=== PATIENT | male | born 1965 | race Caucasian/White ===

== ENCOUNTER 2016-12-03 22:00 | Emergency (ER) | payer BC, OTHER ==
[~2016-12-03] VITALS: Ht 175.3 cm; Wt 94.5 kg
[2016-12-03 22:06] VITALS: Ht 175.3 cm; Wt 94.5 kg
[2016-12-04] MEDS ORDERED: ONDANSETRON 4 MG INJ IV STA (00:15)
[2016-12-04] MEDS ORDERED: morphine 4 MG/ML VIAL IV STA (00:15)
[2016-12-04] MEDS ORDERED: FAMOTIDINE 20 MG INJ IV STA (00:15)
[2016-12-04] MEDS ORDERED: SOD CHLORIDE 0.9% 1,000 ML IV STA (00:15)
[2016-12-04] MEDS ORDERED: LIDOCAINE/MYLANTA 40 ML BTL PO ONE (00:30)
--- NOTE | 2016-12-04 00:40 | RADRPT ---
PROCEDURE: XR Chest. CLINICAL INDICATION: Abdominal pain TECHNIQUE: Single frontal view of the chest was obtained COMPARISON: None FINDINGS: The heart and mediastinum are within normal limits. The lungs are clear. There is no pleural effusion or pneumothorax. IMPRESSION: No acute disease. RPTAT: HJES .Nick Gutierrez MD, Date Time Electronically viewed and signed by .Nick Gutierrez MD, on 12/04/2016 00:40 .S/
[2016-12-04 00:49] LABS: ADD SCAN DIFF NO
[2016-12-04 00:50] LABS: ABNORMAL IP MESSAGE 1; BASOPHILS % 0.3 % (0.0-2.0); EOSINOPHILS # 0.3 10^3/ul (0.0-0.5); EOSINOPHILS % 2.1 % (0.0-7.0); HEMATOCRIT 40.1 % (42.0-52.0); HEMOGLOBIN 13.9 g/dl (14.0-18.0); LYMPHOCYTES # 5.2 10^3/ul (0.8-2.9); LYMPHOCYTES % 43.1 % (15.0-51.0); MEAN CORPUSCULAR HEMOGLOBIN 29.3 pg (29.0-33.0); MEAN CORPUSCULAR HGB CONC 34.7 g/dl (32.0-37.0); MEAN CORPUSCULAR VOLUME 84.6 fl (82.0-101.0); MEAN PLATELET VOLUME 9.4 fl (7.4-10.4); MONOCYTE # 0.8 10^3/ul (0.3-0.9); MONOCYTES % 6.4 % (0.0-11.0); NEUTROPHIL # 5.7 10^3/ul (1.6-7.5); NEUTROPHILS % 47.8 % (39.0-77.0); PLATELET COUNT 299 10^3/UL (140-415); RED BLOOD COUNT 4.74 10^6/ul (4.70-6.10); RED CELL DISTRIBUTION WIDTH 12.7 % (11.5-14.5)
[2016-12-04 01:08] LABS: ALANINE AMINOTRANSFERASE 30 IU/L (13-69); ALBUMIN 4.7 g/dl (3.3-4.9); ALBUMIN/GLOBULIN RATIO 1.88; ALKALINE PHOSPHATASE 60 IU/L (42-121); ANION GAP 15 (8-16); ASPARTATE AMINO TRANSFERASE 20 IU/L (15-46); BILIRUBIN,INDIRECT 0.2 mg/dl (0-1.1); BILIRUBIN,TOTAL 0.2 mg/dl (0.2-1.3); BLOOD UREA NITROGEN 27 mg/dl (7-20); CALCIUM 9.9 mg/dl (8.4-10.2); CARBON DIOXIDE 24 mmol/L (21-31); CHLORIDE 98 mmol/L (97-110); GLUCOSE 219 mg/dl (70-220); POTASSIUM 3.7 mmol/L (3.5-5.1); SODIUM 133 mmol/L (135-144); TOTAL PROTEIN 7.2 g/dl (6.1-8.1)
[2016-12-04 01:24] LABS: TROPONIN-I < 0.012 ng/ml (0.00-0.12)
[2016-12-04 01:34] LABS: ADD UMIC YES; UR AMORPHOUS CRYSTAL MANY /HPF (NONE SEEN); UR ASCORBIC ACID NEGATIVE (NEGATIVE); UR BILIRUBIN (Dip) NEGATIVE (NEGATIVE); UR BLOOD (Dip) NEGATIVE (NEGATIVE); UR CLARITY CLOUDY (CLEAR); UR COLOR YELLOW (YELLOW); UR GLUCOSE (Dip) 2+ mg/dL (NEGATIVE); UR KETONES (Dip) TRACE mg/dL (NEGATIVE); UR LEUKOCYTE ESTERASE (Dip) NEGATIVE Leu/ul (NEGATIVE); UR NITRITE (Dip) NEGATIVE (NEGATIVE); UR RBC 0 /HPF (0-5); UR TOTAL PROTEIN (Dip) 1+ mg/dl (NEGATIVE); UR UROBILINOGEN (Dip) NEGATIVE (NEGATIVE)
[2016-12-04] MEDS ORDERED: SUCR1TAB56 PO (01:49)
[2016-12-04] MEDS ORDERED: RANI150T9 PO (01:49)
--- NOTE | 2016-12-04 01:49 | ERD ---
ER Documentation Chief Complaint Date/Time DATE: 12/04/16 TIME: 01:48 Chief Complaint epigastric pain x 3 days. "burning pain" hx of GERD HPI 51-year-old male with epigastric burning pain 3 days. Patient has history of GERD. No fevers no chills. Mild nausea but no vomiting. No other current complaints. Pain is burning sensation. Similar to some GERD symptoms in the past. ROS All systems reviewed and are negative except as per history of present illness. PMhx/Soc Medical and Surgical Hx: pt denies Surgical Hx Hx Cardiac Disorders: Yes (htn) Hx Miscellaneous Medical Probl: Yes (diabetes) Hx Alcohol Use: Yes (some) Hx Substance Use: No Hx Tobacco Use: Yes Smoking Status: Current every day smoker Physical Exam Vitals Vital Signs Date Time Temp Pulse Resp B/P Pulse Ox O2 Delivery O2 Flow Rate FiO2 12/03/16 22:06 98.5 87 18 136/82 99 Physical Exam Const: [] Head: Atraumatic Eyes: Normal Conjunctiva ENT: Normal External Ears, Nose and Mouth. Neck: Full range of motion..~ No meningismus. Resp: Clear to auscultation bilaterally Cardio: Regular rate and rhythm, no murmurs Abd: Soft, non tender, non distended. Normal bowel sounds Skin: No petechiae or rashes Back: No midline or flank tenderness Ext: No cyanosis, or edema Neur: Awake and alert Psych: Normal Mood and Affect Result Diagram: 12/04/16 0030 12/04/16 0030 Results 24 hrs Laboratory Tests Test 12/04/16 00:30 12/04/16 01:00 White Blood Count 12.010^3/ul Red Blood Count 4.7410^6/ul Hemoglobin 13.9g/dl Hematocrit 40.1% Mean Corpuscular Volume 84.6fl Mean Corpuscular Hemoglobin 29.3pg Mean Corpuscular Hemoglobin Concent 34.7g/dl Red Cell Distribution Width 12.7% Platelet Count 79265^3/UL Mean Platelet Volume 9.4fl Neutrophils % 47.8% Lymphocytes % 43.1% Monocytes % 6.4% Eosinophils % 2.1% Basophils % 0.3% Nucleated Red Blood Cells % 0.0/100WBC Neutrophils # 5.710^3/ul Lymphocytes # 5.210^3/ul Monocytes # 0.810^3/ul Eosinophils # 0.310^3/ul Basophils # 0.010^3/ul Nucleated Red Blood Cells # 0.010^3/ul Sodium Level 133mmol/L Potassium Level 3.7mmol/L Chloride Level 98mmol/L Carbon Dioxide Level 24mmol/L Anion Gap 15 Blood Urea Nitrogen 27mg/dl Creatinine 1.30mg/dl Glucose Level 219mg/dl Calcium Level 9.9mg/dl Total Bilirubin 0.2mg/dl Direct Bilirubin 0.00mg/dl Indirect Bilirubin 0.2mg/dl Aspartate Amino Transf (AST/SGOT) 20IU/L Alanine Aminotransferase (ALT/SGPT) 30IU/L Alkaline Phosphatase 60IU/L Troponin I < 0.012ng/ml Total Protein 7.2g/dl Albumin 4.7g/dl Globulin 2.50g/dl Albumin/Globulin Ratio 1.88 Lipase 280U/L Urine Color YELLOW Urine Clarity CLOUDY Urine pH 8.0 Urine Specific Clancy 1.020 Urine Ketones TRACEmg/dL Urine Nitrite NEGATIVEmg/dL Urine Bilirubin NEGATIVEmg/dL Urine Urobilinogen NEGATIVEmg/dL Urine Leukocyte Esterase NEGATIVELeu/ul Urine Microscopic RBC 0/HPF Urine Microscopic WBC 0/HPF Urine Amorphous Crystals MANY/HPF Urine Hemoglobin NEGATIVEmg/dL Urine Glucose 2+mg/dL Urine Total Protein 1+mg/dl Current Medications Medications (Trade) Dose Ordered Sig/Ericka Route PRN Reason Start Time Stop Time Status Last Admin Dose Admin Sodium Chloride (NS) 1,000 ml @ 1,000 mls/hr Q1H STAT IV 12/04/16 00:15 12/04/16 01:14 DC 12/04/16 00:27 Morphine Sulfate (morphine) 4 mg ONCE STAT IV 12/04/16 00:15 12/04/16 00:17 DC 12/04/16 00:27 Ondansetron HCl (Zofran Inj) 4 mg ONCE STAT IV 12/04/16 00:15 12/04/16 00:17 DC 12/04/16 00:27 Famotidine (Pepcid Iv) 20 mg ONCE STAT IV 12/04/16 00:15 12/04/16 00:17 DC 12/04/16 00:27 Miscellaneous Medication (Gi Cocktail (2)) 40 ml ONCE ONCE PO 12/04/16 00:30 12/04/16 00:31 DC 12/04/16 00:26 Procedures/MDM EKG: Rate/Rhythm: Normal Sinus Rhythm QRS, ST, T-waves: No changes consistent w/ acute ischemia Impression: No evidence of ischemia or arrhythmia Chest X-ray 1V Interpreted by me: Soft Tissue: No acute abnormalities Bones: No acute abnormalities Mediastinum/Cardiac Silhouette/Lungs: No acute abnormalities Medical decision-making: This very pleasant gentleman comes in with epigastric burning sensation consistent with a history of GERD. No evidence of cardiac ischemia. Well-appearing. Pain is resolved. Patient be discharged home with Zantac and Carafate. Patient has no risk factors cardiac disease., However the patient has been advised to return immediately to the ER for any chest pain shortness breath. Also advised to return in 8 hours for serial abdominal exams which he agrees. Departure Diagnosis: Primary Impression: Epigastric pain Condition: Stable ROSANA HENRY Dec 04, 2016 01:49
[2016-12-04 02:25] VITALS: BP 133/95; PULSE 77; RESP 18
== END 2016-12-04 02:25 | disposition home or self-care (01) ==
LOC: FTE 22:00 → E/R 12-04 02:25
DX: R10.13 Epigastric pain (principal); I10 Essential (primary) hypertension; E11.9 Type 2 diabetes mellitus without complications; F17.210 Nicotine dependence, cigarettes, uncomplicated; R11.0 Nausea
CPT/HCPCS: 36415; 71010; 80053; 81001; 83690; 84484; 85025; 93005; 96374; 96375; 99285; J2270; J2405; J7030; Z7610